=== PATIENT | male | born 1980 | race Caucasian/White ===

== ENCOUNTER 2017-11-02 01:52 | Emergency (ER) | payer OTHER ==
[~2017-11-02] VITALS: Ht 172.7 cm; Wt 72.7 kg
[~2017-11-02 01:52] MED LIST: NOHOMEMEDS
[2017-11-02 02:31] LABS: APPEARANCE CLOUDY ((CLEAR)); BILIRUBIN NEGATIVE; BLOOD MODERATE; COLOR YELLOW ((YELLOW)); GLUCOSE (STRIP) NEGATIVE; KETONES 20; LEUKOCYTES NEGATIVE; NITRITE NEGATIVE; PROTEIN (STRIP) 100; SPECIFIC GRAVITY 1.023 (1.000-1.030)
[2017-11-02 02:34] LABS: BASOPHIL (%) 0.6 % (0-1); BASOPHIL COUNT 0.1 K/uL (0-0.1); EOSINOPHIL (%) 0.7 % (0-5); EOSINOPHIL COUNT 0.1 K/uL (0-0.3); HEMATOCRIT 43.1 % (38.0-50.0); HEMOGLOBIN 16.1 G/DL (12.5-16.6); IMMATURE GRANULOCYTE (%) 0.6 % (0.0-0.7); LYMPHOCYTE (%) 11.2 % (15-42); LYMPHOCYTE COUNT 1.8 K/uL (1.0-2.8); MCH 30.8 PG (29.0-34.0); MCHC 37.4 G/DL (30.0-36.0); MCV 82.6 FL (86-99); MONOCYTE (%) 7.5 % (3-12); MONOCYTE COUNT 1.2 K/uL (0-0.8); NEUTROPHIL (%) 79.4 % (45-76); NEUTROPHIL COUNT 12.9 K/uL (1.8-6.4); PLATELET COUNT 266 K/uL (156-360); RBC DIS.WIDTH-CV 12.2 % (11.8-14.6); RED BLOOD COUNT 5.22 M/uL (4.00-5.50); WHITE BLOOD COUNT 16.2 K/uL (4.1-10.2)
[2017-11-02 02:34] LABS: BACTERIA NONE SEEN /HPF; EPITHELIAL CELLS RARE /HPF; MUCUS 1+ /LPF; RED BLOOD CELLS TNTC /HPF (0-5); WHITE BLOOD CELLS 20-30 /HPF (0-5)
[2017-11-02 02:47] LABS: ALBUMIN 4.7 g/dL (3.2-4.8); CHLORIDE 106 mEq/L (99-109); POTASSIUM 3.4 mEq/L (3.7-5.4); SODIUM 142 mEq/L (136-147)
[2017-11-02 02:49] LABS: GLUCOSE 148 mg/dL (70-99)
[2017-11-02 02:50] LABS: TOTAL PROTEIN 7.3 g/dL (6.4-8.3)
[2017-11-02 02:51] LABS: TOTAL BILIRUBIN 0.8 mg/dL (0.0-1.0)
[2017-11-02 02:53] LABS: ALKALINE PHOSPHATASE 67 IU/L (3-129); CREATININE 1.3 mg/dL (0.6-1.3); GFR ESTIMATE (CALCULATED) > 59 mL/min/ (58.99-99999)
[2017-11-02 02:54] LABS: UREA NITROGEN (BUN) 21 mg/dL (9-23)
[2017-11-02 02:55] LABS: AST (GOT) 23 IU/L (2-34); DIRECT BILIRUBIN 0.3 mg/dL (0.0-0.3)
[2017-11-02 02:56] LABS: ALT (GPT) 25 IU/L (3-49)
[2017-11-02 02:57] LABS: LIPASE 24 U/L (1.0-51.0)
[2017-11-02 03:12] LABS: SOURCE URINE
[2017-11-02] MEDS ORDERED: NAPROSYN500 MG PO (04:21)
[2017-11-02] MEDS ORDERED: NORCO 7.5/321 TABLET PO (04:21)
[2017-11-02] MEDS ORDERED: FLOMAX0.4 MG PO (04:46)
[2017-11-02] MEDS ORDERED: ZOFRAN ODT8 MG PO (04:46)
[2017-11-02] MEDS ORDERED: MOTRIN800 MG PO (04:46)
[2017-11-02 05:03] VITALS: BP 121/71
[2017-11-02 13:36] LABS: CHLAMYDIA TRACHOMATIS NEGATIVE; NEISSERIA GONORRHOEAE NEGATIVE
== END 2017-11-02 05:05 | disposition home or self-care (01) ==
LOC: EME → EDBD 01:52 → EXP 01:52
PROVIDERS: Physician Assistant
DX: N20.1 Calculus of ureter (principal); R31.9 Hematuria, unspecified; N50.812 Left testicular pain; F17.200 Nicotine dependence, unspecified, uncomplicated
CPT/HCPCS: 74176; 76870; 80048; 80076; 81003; 83690; 85025; 87086; 87491; 87591; 93975; 99281; 99285; J0696; J1885; J2405; J3010